=== PATIENT | female | born 1960 | race Hispanic/Latino ===

== ENCOUNTER 2022-05-30 06:57 | Day surgery (SDC) | payer BC ==
[2022-05-30] VITALS (8 sets, daily range): BP systolic 100–129; BP diastolic 62–78
[~2022-05-30] VITALS: Ht 162.6 cm; Wt 94.3 kg
[2022-05-30] MEDS ORDERED: 0.9%NACL 1000ML 1,000 ML IV ONE (07:13)
[2022-05-30] MEDS ORDERED: DULA4.5P SQ (07:39)
[2022-05-30] MEDS ORDERED: METF-446 PO (07:39)
[2022-05-30] MEDS ORDERED: LISI10TA24 PO (07:39)
== END 2022-05-30 09:35 | disposition home or self-care (01) ==
LOC: DAH 06:57 → ENDO 06:57
PROVIDERS: ATTEND Surgery
DX: K21.9 Gastro-esophageal reflux disease without esophagitis (principal); K22.89 Other specified disease of esophagus; K29.70 Gastritis, unspecified, without bleeding; I10 Essential (primary) hypertension; E11.9 Type 2 diabetes mellitus without complications; E66.01 Morbid (severe) obesity due to excess calories; Z72.89 Other problems related to lifestyle; Z68.36 Body mass index [BMI] 36.0-36.9, adult; Z79.84 Long term (current) use of oral hypoglycemic drugs; Z79.899 Other long term (current) drug therapy; Z98.891 History of uterine scar from previous surgery
CPT/HCPCS: 87426; 43239; 82948; J7030; A4620; A4215; A4223; A4222; A4221; A4663; A4606